=== PATIENT | male | born 1940 | race Caucasian/White ===

== ENCOUNTER → 2016-10-15 | Day surgery (SDC) | payer MEDICARE, OTHER ==
[~2016-10-15] MED LIST: ACYC800T PO; AMLO5TAB2 PO; ASPI-482 PO; CARV12.52 PO; DIPH25CA58 PO; FENTANYL PF 100 MCG/2 ML VIAL. IV PRN; FLUT1DIS3 INH; HYDROMORPHONE 2 MG/ML VIAL. IV PRN; INSU100I13 SQ; INSU100I17 SQ; IV RINGERS,LACTATED 1000ML 1,000 ML IV SCH; LEVO750T31 PO; LIDOCAINE 1% 1 ML SYRINGE. ID PRN; LOSA25TA4 PO; METF10002 PO; MORPHINE SULFATE 2 MG/ML DISP.SYRIN. IV PRN; ONDANSETRON PF 4 MG/2 ML VIAL. IV PRN; PRED20TA PO; PROCHLORPERAZINE 10 MG/2 ML VIAL. IV PRN; PROPOFOL 20 ML IV ONE; SIMV20TA3 PO; TRIA1CAP3 PO; VIT1CAPS17 PO
[2016-10-15 09:22] VITALS: BP 159/78
--- NOTE | 2016-10-16 09:34 | CONS ---
DATE OF CONSULTATION: 10/15/2016 REFERRING PHYSICIAN: Dr. Macario Engel. HISTORY OF PRESENT ILLNESS: A 75-year-old male whose past medical history is significant for osteoarthrosis, nephrolithiasis, history of colonic polyps, diabetes, hypertension, hyperlipidemia, coronary arthrosclerosis, cardiomyopathy, seen for interval colon exam. Last exam was approximately 7 years ago with intermittent diarrhea with his medication and then no bleeding. Weight and appetite have been stable. He is otherwise without additional complaints. PAST MEDICAL HISTORY: Nephrolithiasis, diverticulosis, diabetes, hypertension, hyperlipidemia. ALLERGIES: LEVOFLOXACIN. MEDICATIONS: Include amlodipine, aspirin, carvedilol, diphenhydramine, NovoLog insulin, levofloxacin, losartan, metformin, prednisone, simvastatin, triamterene, multivitamins. PAST SURGICAL HISTORY: He is status post bypass grafting, spinal cord stimulator implant, carpal tunnel repair among other surgeries. REVIEW OF SYSTEMS: Per records. PHYSICAL EXAMINATION: GENERAL: Reveals well-nourished, well-developed male. VITAL SIGNS: Temp is 97.8, pulse 85, respiratory rate is 20. HEENT: Normocephalic and atraumatic head. Pupils and extraocular muscles not tested. Sclerae anicteric. NECK: Supple. LUNGS: Clear. CARDIOVASCULAR: Reveals S1, S2 without S3, S4 or appreciable murmur. ABDOMEN: Reveals a soft abdomen, normal bowel sounds, without appreciable hepatosplenomegaly. EXTREMITIES: Reveals no cyanosis, clubbing or edema. IMPRESSION: History of colonic polyps. Surveillance exam was recommended at this time. Risks and benefits of procedure including the risk of hemorrhage and perforation requiring operation have been discussed. The patient is willing to proceed at this time. I thank Dr. Engel for allowing us to consult and participate in the patient's care. RODRIGO THOMSON MD DR: DAVID/itzel JOB#: [id number] / [id number] Dr. Macario Longo
--- NOTE | 2016-10-16 16:08 | PATHOLOGY ---
PATHOLOGY REPORT * * * * * * * * FINAL DIAGNOSIS: A. Colon biopsy, transverse colon polyp: - Tubular adenoma. B. Colon biopsy, hepatic flexure polyp: - Tubular adenoma. COMMENT: There is no high grade dysplasia or evidence of malignancy. (JPM:all; d/t: 10/15/2016) REPORT ELECTRONICALLY SIGNED BY: Keaton Penaloza M.D. DATE/TIME: 10/16/2016 16:08 * * * * * * * * GROSS PATHOLOGY: A. Received in formalin labeled "Judy Rodriguez and transverse colon polyp," are 2 segments of staley soft tissue admixed with vegetative material measuring 0.9 x 0.3 x 0.3 cm in aggregate dimensions and measuring 0.4 and 0.5 cm in maximum dimension. The specimen is submitted entirely in cassette A1. B. Received in formalin labeled "Judy Rodriguez and hepatic flexure polyp," are 5 segments of staley soft tissue measuring 1.6 x 0.3 x 0.2 cm in aggregate dimensions and ranging from 0.2 to 0.4 cm in maximum dimension. The specimen is submitted entirely in cassette B1. (TTL; 10/15/2016) INITIAL CPT CODE(S): A; 58955 B; 35846 Professional services performed [place] [address] Technical services performed by [facility] at [address] [place] [address] [address] [address]. SPECIMEN(S) RECEIVED: A.Transverse colon polyp B.Hepatic flexure polyp CLINICAL HISTORY: Polyps PATIENT: JUDY RODRIGUEZ /AGE: 311/05/1940 (Age: 75) PATIENT #: [id number] ALT CASE #: SPECIMEN COLLECTION DATE: 10/15/2016 SPECIMEN RECEIVED DATE: 10/15/2016 [facility] - [address] [place] [address] - PHONE: [phone] * * * END OF REPORT * * *
== END | disposition home or self-care (01) ==
LOC: ENDOS 07:26
PROVIDERS: ATTEND Internal Medicine Gastroenterology
DX: Z12.11 Encounter for screening for malignant neoplasm of colon (principal); D12.3 Benign neoplasm of transverse colon; K64.0 First degree hemorrhoids; K57.30 Diverticulosis of large intestine without perforation or abscess without bleeding; G62.9 Polyneuropathy, unspecified; I50.9 Heart failure, unspecified; Z95.1 Presence of aortocoronary bypass graft; I10 Essential (primary) hypertension; J44.9 Chronic obstructive pulmonary disease, unspecified; E66.9 Obesity, unspecified; M19.90 Unspecified osteoarthritis, unspecified site; E11.9 Type 2 diabetes mellitus without complications; F41.9 Anxiety disorder, unspecified; F32.9 Major depressive disorder, single episode, unspecified; F17.200 Nicotine dependence, unspecified, uncomplicated
CPT/HCPCS: 45385; 88305; J2704

== ENCOUNTER → 2017-01-06 | Outpatient (CLI) | payer MEDICARE, OTHER ==
[2016-10-15 09:22] VITALS: BP 159/78
[~2017-01-06] MED LIST changes: -FENTANYL PF 100 MCG/2 ML VIAL. IV PRN; -HYDROMORPHONE 2 MG/ML VIAL. IV PRN; -IV RINGERS,LACTATED 1000ML 1,000 ML IV SCH; -LIDOCAINE 1% 1 ML SYRINGE. ID PRN; +METF-620 PO; -METF10002 PO; -MORPHINE SULFATE 2 MG/ML DISP.SYRIN. IV PRN; -ONDANSETRON PF 4 MG/2 ML VIAL. IV PRN; -PROCHLORPERAZINE 10 MG/2 ML VIAL. IV PRN; -PROPOFOL 20 ML IV ONE; +SULFUR HEXAFLUORIDE MICROSPHR 25 MG VIAL. IVP ONE
--- NOTE | 2017-01-06 18:15 | CARD ---
APPROVED REPORT EXAM: Two-dimensional and M-mode echocardiogram with Doppler and color Doppler. Other Information Quality : Technically LimitedHR: 78bpm Rhythm : NSR INDICATION Cardiomyopathy RISK FACTORS Hypertension Obesity Hyperlipidemia Diabetes Smoking 2D DIMENSIONS RVDd4.2 (2.9-3.5cm)Left Atrium(2D)5.0 (1.6-4.0cm) IVSd1.5 (0.7-1.1cm)Aortic Root(2D)3.8 (2.0-3.7cm) LVDd6.2 (3.9-5.9cm)LVOT Diameter3.6 (1.8-2.4cm) PWd1.3 (0.7-1.1cm)LVDs5.4 (2.5-4.0cm) FS (%) 12.9 %SV52.6 ml LVEF(%)35.0 (>50%) Aortic Valve AoV Peak Ruben.145.6cm/sAoV VTI22.1cm AO Peak GR.8.5mmHgLVOT Peak Ruben.109.2cm/s AO Mean GR.4mmHgAVA (VMAX)7.71cm2 Mitral Valve MV E Raaawyiz77.0cm/sMV E Peak Gr.3mmHg MV DECEL [id number] A Hvwxdwyk96.4cm/s MV E Mean Gr.1mmHgE/A Ratio0.6 MV A [id number] Pulmonary Valve PV Peak Wobfqfeg75.1cm/s LEFT VENTRICLE The Left Ventricle is mildly dilated. There is mild to moderate concentric left ventricular hypertrop hy. Left ventricle systolic function is moderately impaired. The Ejection Fraction is 35%. There is s evere global hypokinesis of the left ventricle. Transmitral Doppler flow pattern is Grade I-abnormal relaxation pattern. No left ventricle thrombus noted on this study. RIGHT VENTRICLE The right ventricle is mildly dilated. There is normal right ventricular wall thickness. The right ve ntricular systolic function is normal. ATRIA The left atrium is moderately dilated. The right atrium size is normal. The interatrial septum is int act with no evidence for an atrial septal defect or patent foramen ovale as noted on 2-D or Doppler i maging. AORTIC VALVE The aortic valve is not well visualized but appears to opens well. The aortic valve is mildly sclerot ic. Doppler and Color Flow revealed no significant aortic regurgitation. There is no significant aort ic valvular stenosis. MITRAL VALVE Mitral annular calcification is mild. The mitral valve leaflets are thickened. There is no evidence o f mitral valve prolapse. There is no mitral valve stenosis. Doppler and Color Flow revealed no mitral valve regurgitation noted. TRICUSPID VALVE Doppler and Color Flow revealed no tricuspid valve regurgitation noted. Unable to determine pulmonary artery pressure at exam time. PULMONIC VALVE Doppler and Color Flow revealed trace pulmonic valvular regurgitation. There is no pulmonic valvular stenosis. GREAT VESSELS The aortic root is mildly enlarged. The ascending aorta is mildly dilated. The pulmonary artery is no rmal. The IVC was obscured, unable to assess. PERICARDIAL EFFUSION There is no evidence of significant pericardial effusion. Critical Notification Critical Value: No <Conclusion> The Left Ventricle is mildly dilated. There is mild to moderate concentric left ventricular hypertrophy. Left ventricle systolic function is moderately impaired. The Ejection Fraction is 35%. There is severe global hypokinesis of the left ventricle. Transmitral Doppler flow pattern is Grade I-abnormal relaxation pattern. The right ventricle is mildly dilated. The left atrium is moderately dilated. The right atrium size is normal. The aortic valve is not well visualized but appears to opens well. The aortic valve is mildly sclerot ic. Mitral annular calcification is mild. The mitral valve leaflets are thickened. Doppler and Color Flow revealed no tricuspid valve regurgitation noted. Unable to determine pulmonary artery pressure at exam time. Doppler and Color Flow revealed trace pulmonic valvular regurgitation. The aortic root is mildly enlarged. The ascending aorta is mildly dilated. There is no evidence of significant pericardial effusion.
== END | disposition home or self-care (01) ==
LOC: ECHO 12:31
PROVIDERS: ATTEND Internal Medicine Cardiovascular Disease
DX: I42.9 Cardiomyopathy, unspecified (principal)
CPT/HCPCS: C8929; Q9950

== ENCOUNTER → 2019-02-25 | Outpatient (CLI) | payer MEDICARE, OTHER ==
[2016-10-15 09:22] VITALS: BP 159/78
[~2019-02-25] MED LIST changes: +AMLO5TAB10 PO; -AMLO5TAB2 PO; +CARV12.511 PO; -CARV12.52 PO; -LOSA25TA4 PO; +LOSA25TA54 PO; -METF-620 PO; +METF10007 PO; -SULFUR HEXAFLUORIDE MICROSPHR 25 MG VIAL. IVP ONE
--- NOTE | 2019-02-25 13:57 | CARD ---
MR#: [id number] Date of Study: 02/25/2019 Ordering Physician: SAMAN BAY, Referring Physician: SAMAN BAY, Tech: Louisa Wheeler RITU APPROVED REPORT EXAM: Two-dimensional and M-mode echocardiogram with Doppler and color Doppler. Other Information Quality : Technically LimitedHR: 76bpm Rhythm : OtherTechnically limited study due to body habitus, CABG, and smoking. INDICATION Cardiomyopathy Surgery/Intervention CABG: Date: 2007 RISK FACTORS Hypertension Obesity Hyperlipidemia Diabetes Smoking 2D DIMENSIONS RVDd3.3 (2.9-3.5cm)Left Atrium(2D)5.0 (1.6-4.0cm) IVSd1.2 (0.7-1.1cm)Aortic Root(2D)4.0 (2.0-3.7cm) LVDd6.8 (3.9-5.9cm)LVOT Diameter2.8 (1.8-2.4cm) PWd1.2 (0.7-1.1cm)LVDs6.1 (2.5-4.0cm) FS (%) 9.8 %SV50.1 ml LVEF(%)25.0 (>50%) M-Mode DIMENSIONS Left Atrium(MM)4.56 (2.5-4.0cm)IVSd1.27 (0.7-1.1cm) Aortic Root4.13 (2.2-3.7cm)LVDd6.68 (4.0-5.6cm) PWd1.23 (0.7-1.1cm)FS (%) 14 % LVDs5.72 (2.0-3.8cm)ESV(Teich)161.5 ml LVEF(%)30 (>50%) Aortic Valve AoV Peak Ruben.102.5cm/sAoV VTI21.0cm AO Peak GR.4.2mmHgLVOT Peak Ruben.59.3cm/s AO Mean GR.3mmHgAVA (VMAX)3.49cm2 MICHELLE (VTI)3.50cm2 Mitral Valve MV E Ilqcrvva41.2cm/sMV E Peak Gr.6mmHg MV DECEL [id number] A Wjxbolre38.2cm/s MV E Mean Gr.3mmHgE/A Ratio0.8 Pulmonary Valve PV Peak Ydnbufuu28.3cm/s LEFT VENTRICLE The Left Ventricle is moderately dilated. There is mild concentric left ventricular hypertrophy. The ejection fraction is moderately to severely impaired. The Ejection Fraction is 25-30%. There is globa l hypokinesis of the left ventricle. Transmitral Doppler flow pattern is abnormal. RIGHT VENTRICLE The right ventricle is borderline dilated. There is normal right ventricular wall thickness. The righ t ventricular systolic function is normal. ATRIA The left atrium is moderately dilated. The right atrium is mildly dilated. The interatrial septum is intact with no evidence for an atrial septal defect or patent foramen ovale as noted on 2-D or Dopple r imaging. AORTIC VALVE The aortic valve is calcified but opens well. The aortic valve is trileaflet. Doppler and Color Flow revealed no significant aortic regurgitation. There is no significant aortic valvular stenosis. MITRAL VALVE The mitral valve is normal in structure and function. There is no evidence of mitral valve prolapse. There is no mitral valve stenosis. Doppler and Color Flow revealed no mitral valve regurgitation note d. TRICUSPID VALVE The tricupid valve is not well visualized. Doppler and Color Flow revealed no tricuspid valve regurgi tation noted. There is no tricuspid valve prolapse or vegetation. PULMONIC VALVE The pulmonic valve is not well visualized. GREAT VESSELS The aortic root is mildly enlarged. The IVC was not visualized. PERICARDIAL EFFUSION There is no evidence of significant pericardial effusion. Critical Notification Critical Value: No <Conclusion> The ejection fraction is moderately to severely impaired. The Ejection Fraction is 25-30%. The Left Ventricle is moderately dilated. There is global hypokinesis of the left ventricle. Technically difficult study. Signed by : Aron Hansen, Electronically Approved : 02/25/2019 13:57:05
== END | disposition home or self-care (01) ==
LOC: ECHO 12:39
PROVIDERS: ATTEND Internal Medicine Cardiovascular Disease
DX: I35.8 Other nonrheumatic aortic valve disorders (principal); I77.89 Other specified disorders of arteries and arterioles; I11.9 Hypertensive heart disease without heart failure; I42.9 Cardiomyopathy, unspecified; E66.9 Obesity, unspecified; E78.5 Hyperlipidemia, unspecified; E11.9 Type 2 diabetes mellitus without complications; F17.200 Nicotine dependence, unspecified, uncomplicated
CPT/HCPCS: 93306

== ENCOUNTER 2019-03-09 16:22 | Emergency (ER) | payer MEDICARE, OTHER ==
[~2019-03-09] VITALS: Ht 182.9 cm; Wt 149.7 kg
--- NOTE | 2019-03-09 17:47 | PHYS DOC ---
Past Medical History Past Medical History: Arthritis, CAD, Diabetes-Type II, High Cholesterol, Hypertension (ARIANNE LOZANO MD) Past Surgical History: Coronary Bypass Surgery, Other Additional Past Surgical Histo: SPINAL STIMULATOR (ARIANNE LOZANO MD) Alcohol Use: None Drug Use: None (ARIANNE LOZANO MD) Adult General Chief Complaint Chief Complaint: MECHANICAL FALL HPI HPI Patient is a 78-year-old male with multiple chronic conditions, who presents to the emergency department for evaluation after a fall. She was on his porch, when he tripped over a stool that was on the floor that he did not see, and he fell to the ground landing on his left side. He complains of left neck, shoulder, knee, anterior/abdominal pain. He denies loss of consciousness, significant headache, chest pain other than his rib pain, new numbness or weakness. He does report chronic neuropathy. He denies any he felt dizzy or lightheaded before falling, he states he tripped. He denies any midline upper back, or lower back pain. He denies any pelvic pain. There are no alleviating factors to her symptoms and movement worsens his pain. (ARIANNE LOZANO MD) Review of Systems Review of Systems Constitutional: Denies fever or chills [] Eyes: Denies change in visual acuity, redness, or eye pain [] HENT: Denies nasal congestion or sore throat [] Respiratory: Denies cough or shortness of breath [] Cardiovascular: No additional information not addressed in HPI [] GI: Denies nausea, vomiting, bloody stools or diarrhea [] : Denies dysuria or hematuria [] Musculoskeletal: Denies back pain or joint pain, other than as noted in the HPI [] Integument: Denies rash or skin lesions [] Neurologic: Denies headache, new focal weakness or sensory changes [] Endocrine: Denies polyuria or polydipsia [] All other systems were reviewed and found to be within normal limits, except as documented in this note. (ARIANNE LOZANO MD) Current Medications Current Medications Current Medications Medications (Trade) Dose Ordered Sig/Sherin Start Time Stop Time Status Last Admin Dose Admin Info (CONTRAST GIVEN -- Rx MONITORING) 1 each PRN DAILY PRN 03/09/19 18:45 03/11/19 18:44 Iohexol (Omnipaque 300 Mg/ml) 75 ml 1X ONCE 03/09/19 19:00 03/09/19 19:01 DC 03/09/19 19:13 75 ML Morphine Sulfate (Morphine Sulfate) 4 mg 1X ONCE 03/09/19 18:00 03/09/19 18:01 DC 03/09/19 18:51 4 MG Oxycodone/ Acetaminophen (Percocet 10/325) 1 tab 1X ONCE 03/09/19 21:15 03/09/19 21:16 (CANDY PRICE DO) Allergies Allergies Allergies Coded Allergies Type Severity Reaction Last Updated Verified levofloxacin Adverse Reaction Intermediate dizziness 10/15/16 Yes (CANDY PRICE DO) Physical Exam Physical Exam PHYSICAL EXAM: CONSTITUTIONAL: Well developed, well nourished HEAD: normocephalic, atraumatic EENT: PERRL, EOMI. Conjunctivae normal color, sclerae non-icteric; moist mucous membranes. NECK: Supple, there is mild diffuse tenderness to palpation of the cervical spine. Patient LUNGS: Lungs CTA, breathing even and unlabored. Normal air movement. HEART: Regular rate and rhythm, no murmur CHEST: No deformity; There is diffuse TTP of the left chest wall, posteriorly, laterally, and anteriorly, without crepitus, or bruising. ABDOMEN: The abdomen is soft, protuberant, there is a nontender umbilical hernia. However, there is diffuse tenderness to palpation to the entire left side of the abdomen without definite rebound or guarding. The patient. EXTREM: Normal ROM; no deformity, no calf tenderness. Normal pulses palpable in all extremities. There is a superficial abrasion on the anterior aspect of the left knee, there is diffuse tenderness to palpation of the left knee, range of motion is intact, there are changes of venous stasis with bilateral pedal edema, without any other lower extremity tenderness to palpation. SKIN: No rash; no diaphoresis NEURO: Alert; normal speech and cognition; CN's grossly intact; strength grossly intact without focal deficit. BACK: No CVA TTP. There is no bony tenderness to palpation of the thoracic or lumbar spine. (ARIANNE LOZANO MD) Current Patient Data Vital Signs Vital Signs Date Time Temp Pulse Resp B/P (MAP) Pulse Ox O2 Delivery O2 Flow Rate FiO2 03/09/19 18:51 95 Room Air 03/09/19 17:37 97.4 83 18 223/94 (137) 97.4 (CANDY PRICE ) Lab Values Laboratory Tests Test 03/09/19 17:48 03/09/19 18:14 Urine Collection Type Void Urine Color Yellow Urine Clarity Clear Urine pH 6.0 Urine Specific [place] 1.025 Urine Protein Negative mg/dL (NEG-TRACE) Urine Glucose (UA) Negative mg/dL (NEG) Urine Ketones (Stick) Negative mg/dL (NEG) Urine Blood Negative (NEG) Urine Nitrite Negative (NEG) Urine Bilirubin Negative (NEG) Urine Urobilinogen Dipstick 0.2 mg/dL (0.2 mg/dL) Urine Leukocyte Esterase Negative (NEG) Urine RBC 0 /HPF (0-2) Urine WBC 0 /HPF (0-4) Urine Squamous Epithelial Cells Mod /LPF Urine Bacteria 0 /HPF (0-FEW) White Blood Count 11.0 x10^3/uL (4.0-11.0) Red Blood Count 4.95 x10^6/uL (4.30-5.70) Hemoglobin 15.9 g/dL (13.0-17.5) Hematocrit 46.2 % (39.0-53.0) Mean Corpuscular Volume 93 fL (79-100) Mean Corpuscular Hemoglobin 32 pg (25-35) Mean Corpuscular Hemoglobin Concent 34 g/dL (31-37) Red Cell Distribution Width 13.0 % (11.5-14.5) Platelet Count 206 x10^3/uL (140-400) Neutrophils (%) (Auto) 72 % (31-73) Lymphocytes (%) (Auto) 16 % (24-48) L Monocytes (%) (Auto) 9 % (0-9) Eosinophils (%) (Auto) 2 % (0-3) Basophils (%) (Auto) 1 % (0-3) Neutrophils # (Auto) 7.9 x10^3uL (1.8-7.7) H Lymphocytes # (Auto) 1.7 x10^3/uL (1.0-4.8) Monocytes # (Auto) 1.0 x10^3/uL (0.0-1.1) Eosinophils # (Auto) 0.3 x10^3/uL (0.0-0.7) Basophils # (Auto) 0.1 x10^3/uL (0.0-0.2) Sodium Level 141 mmol/L (136-145) Potassium Level 5.1 mmol/L (3.5-5.1) Chloride Level 104 mmol/L (98-107) Carbon Dioxide Level 26 mmol/L (21-32) Anion Gap 11 (6-14) Blood Urea Nitrogen 17 mg/dL (8-26) Creatinine 1.2 mg/dL (0.7-1.3) Estimated GFR (Cockcroft-Gault) 58.7 BUN/Creatinine Ratio 14 (6-20) Glucose Level 185 mg/dL (70-99) H Calcium Level 8.8 mg/dL (8.5-10.1) Total Bilirubin 0.3 mg/dL (0.2-1.0) Aspartate Amino Transferase (AST) 52 U/L (15-37) H Alanine Aminotransferase (ALT) 58 U/L (16-63) Alkaline Phosphatase 70 U/L (46-116) Total Protein 7.2 g/dL (6.4-8.2) Albumin 3.5 g/dL (3.4-5.0) Albumin/Globulin Ratio 0.9 (1.0-1.7) L Lipase 155 U/L (73-393) Laboratory Tests 03/09/19 18:14 Laboratory Tests 03/09/19 18:14 (CANDY PRICE DO) EKG EKG [] (ARIANNE LOZANO MD) Radiology/Procedures Radiology/Procedures [] (ARIANNE LOZANO MD) Course & Med Decision Making Course & Med Decision Making 6:00 PM: Patient care was turned over to Dr. Price at shift change, pending diagnostic evaluation results, return precautions given. Pertinent Labs and Imaging studies reviewed. (See chart for details) [] (ARIANNE LOZANO MD) Course & Med Decision Making History and physical exam are repeated by this provider. Agree with previous assessment. Labs and imaging reviewed. Medical spine, negative for acute injury. CT abdomen and pelvis negative. Suspected left posterior rib fractures without evidence pneumothorax. Patient is not hypoxic or respiratory compromise. Left shoulder joint pain with ecchymoses with restricted flexion secondary to pain. No obvious displaced fracture or dislocation. Suspect tater cuff injury. We'll treat supportively with PCP follow-up. Return precautions reviewed. Patient understanding agreement discharge instructions prior to departure. (CANDY PRICE DO) Dragon Disclaimer Dragon Disclaimer This electronic medical record was generated, in whole or in part, using a voice recognition dictation system. (ARIANNE LOZANO MD) Departure Departure Impression: Primary Impression: Injury of left shoulder Additional Impressions: Minor head injury Left rib fracture Disposition: HOME, SELF-CARE Condition: STABLE Referrals: ARIANNE KEBEDE MD (PCP) Scripts Oxycodone/Apap 5-325 (PERCOCET 5-325 MG TABLET ) 1 Each Tablet 1 TAB PO PRN Q6HRS PRN for PAIN, #20 TAB 0 Refills Prov: CANDY PRICE DO 03/09/19 Problem Qualifiers ARIANNE LOZANO MD Mar 09, 2019 17:47 CANDY PRICE DO Mar 09, 2019 21:02
[2019-03-09 17:57] LABS: BILIRUBIN,URINE NEGATIVE (NEG); CLARITY,URINE CLEAR; COLOR,URINE YELLOW; NITRITE,URINE NEGATIVE (NEG); PROTEIN,URINE NEGATIVE (NEG-TRACE); UROBILINOGEN,URINE 0.2 mg/dL (0.2 mg/dL)
[2019-03-09] MEDS ORDERED: MORPHINE SULFATE 4 MG/ML VIAL. IV ONE (18:00)
[2019-03-09 18:06] LABS: BACTERIA,URINE 0 /HPF (0-FEW); RBC,URINE 0 /HPF (0-2); SQUAMOUS EPITHELIAL CELL,UR MOD /LPF; WBC,URINE 0 /HPF (0-4)
[2019-03-09 18:23] LABS: BASO # 0.1 x10^3/uL (0.0-0.2); BASO % 1 % (0-3); EOS # 0.3 x10^3/uL (0.0-0.7); EOS % 2 % (0-3); HEMATOCRIT 46.2 % (39.0-53.0); HEMOGLOBIN 15.9 g/dL (13.0-17.5); LYMPH # 1.7 x10^3/uL (1.0-4.8); LYMPH % 16 % (24-48); MEAN CORPUSCULAR HEMOGLOBIN 32 pg (25-35); MEAN CORPUSCULAR HGB CONC 34 g/dL (31-37); MEAN CORPUSCULAR VOLUME 93 fL (79-100); MONO % 9 % (0-9); NEUT # 7.9 x10^3uL (1.8-7.7); NEUT % 72 % (31-73); PLATELET COUNT 206 x10^3/uL (140-400); RED BLOOD COUNT 4.95 x10^6/uL (4.30-5.70)
[2019-03-09] MEDS ORDERED: CONTRAST GIVEN. MC PRN (18:45)
[2019-03-09 18:50] LABS: CALCIUM 8.8 mg/dL (8.5-10.1); CREATININE 1.2 mg/dL (0.7-1.3); GFR 58.7; POTASSIUM 5.1 mmol/L (3.5-5.1)
[2019-03-09 18:56] LABS: ALBUMIN 3.5 g/dL (3.4-5.0); ALBUMIN/GLOBULIN RATIO 0.9 (1.0-1.7); TOTAL BILIRUBIN 0.3 mg/dL (0.2-1.0); TOTAL PROTEIN 7.2 g/dL (6.4-8.2)
[2019-03-09] MEDS ORDERED: IOHEXOL 300 MG/ML 100ML VIAL. IV ONE (19:00)
--- NOTE | 2019-03-09 19:54 | RAD ---
CT scan of the cervical spine without contrast 03/09/2019 Clinical history: Fall with neck pain. Technique: Unenhanced, contiguous, 0.625 mm axial sections were obtained through the cervical spine. Axial, coronal and sagittal reconstructed images were obtained. One or more of the following individualized dose reduction techniques were utilized for this study: 1. Automated exposure control. 2. Adjustment of the mA and/or kV according to patient size. 3. Use of iterative reconstruction technique. Findings: Sagittal coronal reconstructed images demonstrate slight reversal of the normal cervical lordosis. Degenerative changes consisting of varying degrees of disc space narrowing, vertebral endplate sclerosis and mild to moderate anterior and posterior vertebral body osteophyte formation are seen throughout the cervical disc spaces. No fracture or subluxation of the cervical vertebrae is seen. Degenerative changes are seen involving the uncovertebral and facet joints throughout the cervical disc spaces. Atherosclerotic calcification of the carotid bifurcations is seen bilaterally. Impression: No fracture or subluxation of the cervical vertebra is identified. Electronically signed by: Rg Hester MD (03/09/2019 7:51 PM) [facility]
--- NOTE | 2019-03-09 20:07 | RAD ---
CT scan of the abdomen and pelvis with contrast 03/09/2019 CLINICAL HISTORY: Fall with left-sided abdominal pain. TECHNIQUE: After the intravenous administration of 60 cc of Omnipaque 300, contiguous, I millimeter axial sections were obtained through the abdomen and pelvis. One or more of the following individualized dose reduction techniques were utilized for this study: 1. Automated exposure control. 2. Adjustment of the mA and/or kV according to patient size. 3. Use of iterative reconstruction technique. FINDINGS: Images through the lung bases demonstrate mild cardiomegaly. Minimal dependent subsegmental atelectasis is seen bilaterally. Small calcified granulomas are seen involving the left lower lobe. The liver parenchyma has a decreased attenuation consistent with fatty infiltration. The spleen, pancreas, and adrenal glands are within normal limits. Low-attenuation lesions are seen involving both kidneys which measure 1 cm and 3.7 cm in size. These likely represent cysts. Atherosclerotic calcification of the abdominal aorta and its branches is noted. The abdominal aorta tapers normally. The gallbladder is well-distended. No free fluid or free air is seen within the abdomen. There is no evidence of bowel obstruction. Multiple diverticula are seen involving the colon. No inflammatory changes are seen in the adjacent fat. Images through the pelvis demonstrate the urinary bladder to be contracted. Calcifications are seen within the pelvis consistent with phleboliths. No free fluid is seen. Degenerative changes are seen involving the lower thoracic and throughout the lumbar spine along with both hips. A spinal stimulator is noted in place. IMPRESSION: No acute abnormality is seen. Electronically signed by: Rg Hester MD (03/09/2019 8:04 PM) [facility]
[2019-03-09] MEDS ORDERED: OXYC1TAB15 PO (20:53)
[2019-03-09 21:15] VITALS: BP 148/52
[2019-03-09] MEDS ORDERED: oxyCODONE/APAP 10/325 1 TAB TABLET PO ONE (21:15)
--- NOTE | 2019-03-09 23:15 | RAD ---
Left rib series to include a PA chest radiograph 03/09/2019 CLINICAL HISTORY: Fall with left rib pain. Two PA digital radiographs of the chest were obtained. Four AP and an oblique digital radiographs of the left ribs were obtained. Comparison is made to PA and lateral chest radiographs dated 09/22/2015. The patient is post CABG procedure. Spinal stimulator leads overlie the lower thoracic spine, unchanged. The cardiac silhouette is mildly enlarged. The thoracic aorta is tortuous. Atherosclerotic calcification of the thoracic aorta is seen. No acute pulmonary infiltrate is noted. No pleural effusion or pneumothorax is seen. There is diffuse osteopenia of the visualized bony structures. Degenerative changes are seen involving the thoracic spine. Old healed left-sided rib fractures are noted. No acute left-sided rib fracture is seen. IMPRESSION: No acute left-sided rib fracture is seen. Electronically signed by: Rg Hester MD (03/09/2019 11:12 PM) [facility]
--- NOTE | 2019-03-09 23:18 | RAD ---
Three-view left shoulder radiographs 03/09/2019 CLINICAL HISTORY: Fall with injury to the left shoulder. AP internal and external rotation and transscapular digital radiographs of the left shoulder were obtained. There is diffuse osteopenia of the visualized bony structures. The patient is post CABG procedure. No fracture or dislocation left shoulder is seen. Moderate degenerative changes are seen involving the left AC joint and left glenohumeral joint. Old healed left-sided rib fractures are noted. IMPRESSION: No fracture or dislocation of the left shoulder is seen. Electronically signed by: Rg Hester MD (03/09/2019 11:15 PM) [facility]
== END 2019-03-09 21:09 | disposition home or self-care (01) ==
LOC: ER 16:22
DX: S22.32XA Fracture of one rib, left side, initial encounter for closed fracture (principal); S49.92XA Unspecified injury of left shoulder and upper arm, initial encounter; S80.212A Abrasion, left knee, initial encounter; S09.90XA Unspecified injury of head, initial encounter; M54.2 Cervicalgia; R10.84 Generalized abdominal pain; R51 Headache; E78.00 Pure hypercholesterolemia, unspecified; E11.9 Type 2 diabetes mellitus without complications; I10 Essential (primary) hypertension; I25.10 Atherosclerotic heart disease of native coronary artery without angina pectoris; Z95.1 Presence of aortocoronary bypass graft; Z88.1 Allergy status to other antibiotic agents; W17.89XA Other fall from one level to another, initial encounter; Y93.89 Activity, other specified; Y92.89 Other specified places as the place of occurrence of the external cause; Y99.8 Other external cause status
CPT/HCPCS: 36415; 71101; 72125; 73030; 74177; 80053; 81001; 83690; 85025; 96374; 99285; J2270; Q9967

== ENCOUNTER → 2019-05-05 | Outpatient (CLI) | payer MEDICARE, OTHER ==
[~2019-05-05] MED LIST changes: +OXYC1TAB15 PO
--- NOTE | 2019-05-05 17:34 | KCIC ---
CT UPPR EXTREMTY WO CONTRST LT Indication: Severe left shoulder pain and limited range of motion after injury on March 09, 2019. Exposure: One or more of the following individualized dose reduction techniques were utilized for this examination: 1. Automated exposure control 2. Adjustment of the mA and/or kV according to patient size 3. Use of iterative reconstruction technique. Technique: Standard imaging without intravenous contrast. Findings: Suboptimal limits detail due to artifact related to body habitus. At the inferior margin the study, there is offset of humeral shaft, scapula body and ribs. These are at about the same cephalocaudal level, therefore may be related to spatial misregistration such as from patient movement rather than mildly displaced fractures. High riding humerus, compatible with rotator cuff tear. Degenerative changes at the acromioclavicular joint with osteophytes. Visualized left lung appears grossly clear. IMPRESSION: 1. Suboptimal exam due to body habitus and movement. 2. Apparent fractures of the proximal humeral shaft, scapular body and adjacent ribs, could be related to spatial misregistration from patient movement. Recommend conventional radiographs for further evaluation. Electronically signed by: Richmond Alva MD (05/05/2019 5:31 PM) [facility]
== END | disposition home or self-care (01) ==
LOC: KCIC CT 13:41
PROVIDERS: ATTEND Family Medicine
DX: S46.012A Strain of muscle(s) and tendon(s) of the rotator cuff of left shoulder, initial encounter (principal); M25.712 Osteophyte, left shoulder; X58.XXXA Exposure to other specified factors, initial encounter; Y93.89 Activity, other specified; Y92.89 Other specified places as the place of occurrence of the external cause; Y99.8 Other external cause status
CPT/HCPCS: 73200